=== PATIENT | male | born 1940 | race Caucasian/White ===

== ENCOUNTER 2020-04-05 13:31 | Inpatient (IN) | payer MEDICARE, MEDICAID ==
[~2020-04-05] VITALS: Ht 167.6 cm; Wt 48.5 kg
[2020-04-05 14:10] LABS: BASOPHILS % 0.3 % (0.0-2.0); EOSINOPHILS % 0.2 % (0.0-5.0); HEMATOCRIT. 26.8 % (42.0-52.0); LYMPHOCYTES % 22.5 % (20.0-50.0); MEAN CORPUSCULAR HEMOGLOBIN 31.4 pg (28.0-32.0); MEAN PLATELET VOLUME 12.6 fl (7.4-10.4); MONOCYTES % 10.9 % (2.0-8.0); NEUTROPHILS % 66.1 % (40.0-76.0); PLATELET 147 x1000/uL (130-400); RED BLOOD CELL COUNT 2.85 mill/uL (4.7-6.1); RED CELL DISTRIBUTION WIDTH 16.8 % (11.6-14.6)
[2020-04-05] MEDS ORDERED: ACETAMINOPHEN 650MG SUPP PR ONE (14:15)
[2020-04-05 14:16] LABS: CHLORIDE 119 mEq/L (98-107)
[2020-04-05 14:19] LABS: INR 1.1; PROTHROMBIN TIME 11.9 sec (9.6-11.0)
[2020-04-05 14:44] LABS: CLARITY URINE TURBID (CLEAR); COLOR URINE DARK YELLOW (YELLOW); KETONES URINE TRACE (NEGATIVE); LEUKOCYTE ESTERASE URINE 3+ (NEGATIVE); NITRITE URINE NEGATIVE (NEGATIVE); OCCULT BLOOD URINE 3+ (NEGATIVE); PROTEIN URINE 3+ (NEGATIVE); SPECIFIC GRAVITY URINE 1.021 (1.005-1.030)
[2020-04-05] MEDS ORDERED: VANCOMYCIN 1 G PREMIX 200 ML IV ONE (14:45)
[2020-04-05] MEDS ORDERED: PIPERACILLIN/TAZ 3.375G PREMIX 50 ML IV ONE (14:45)
[2020-04-05] MEDS ORDERED: PHENYLEPHRINE 50 MG in DEXT 5% WATER 245 ML IV PRN (16:00)
[2020-04-05] MEDS ORDERED: DEXT 5%/0.9% NACL 1,000 ML IV SCH (16:00)
[2020-04-05] MEDS ORDERED: IPRATROPIUM BROMIDE (0.02%) 0.5MG/2.5ML NEB HHN SCH (16:00)
[2020-04-05] MEDS: LEVOFLOXACIN 250MG PREMIX 50 ML IV SCH ×2 (17:21→19:34)
[2020-04-05] MEDS ORDERED: ONDANSETRON HCL 4MG/2ML INJ IV PRN (17:45)
[2020-04-05] MEDS ORDERED: CLONIDINE 0.1MG TABLET PO PRN (17:45)
[2020-04-05] MEDS ORDERED: DIPHENHYDRAMINE 50MG/ML VIAL IV PRN (17:45)
[2020-04-05 18:07] LABS: PHOSPHORUS 3.7 mg/dL (2.5-4.9)
[2020-04-05] MEDS: DEXTROSE 5% WATER 1,000 ML IV SCH (19:30)
[2020-04-05] MEDS ORDERED: ACETYLCYSTEINE 100MG/ML 10% VIAL 4ML INH SCH (22:00)
[2020-04-05 22:05] VITALS: BP 103/51
[2020-04-06] MEDS ORDERED: DEXTROSE 50% WATER 50ML SYRINGE IV PRN (01:15)
[2020-04-06] MEDS ORDERED: CHOL200077 GT (01:58)
[2020-04-06] MEDS ORDERED: METO25TA6 GT (01:58)
[2020-04-06] MEDS ORDERED: LACT10SO7 GT (01:58)
[2020-04-06] MEDS ORDERED: TAMS-11 GT (01:58)
[2020-04-06] MEDS ORDERED: AMIN30LI2 GT (01:58)
[2020-04-06] MEDS ORDERED: DONE10TA11 GT (01:58)
[2020-04-06 04:00] VITALS: BP 107/54
[2020-04-06] MEDS: BLOOD SUGAR DIAGNOSTIC STRIP TEST SCH ×4 (07:07→20:45)
[2020-04-06 07:49] LABS: HEMOGLOBIN. 7.2 g/dL (14.0-18.0); MEAN CORPUSCULAR HEMOGLOBIN 31.6 pg (28.0-32.0); MEAN CORPUSCULAR VOLUME 95.8 fL (80.0-94.0); MEAN PLATELET VOLUME 12.4 fl (7.4-10.4); PLATELET 99 x1000/uL (130-400); RED BLOOD CELL COUNT 2.29 mill/uL (4.7-6.1); RED CELL DISTRIBUTION WIDTH 16.4 % (11.6-14.6)
[2020-04-06] MEDS: INSULIN LISPRO 100 UNITS/ML SUBCUT SCH ×4 (07:55→20:45)
[2020-04-06 07:57] LABS: CHLORIDE 125 mEq/L (98-107)
[2020-04-06 08:00] VITALS: BP 112/52
[2020-04-06] MEDS ORDERED: VANCOMYCIN 750 MG PREMIX 150 ML IV SCH ×2 (08:00)
[2020-04-06 08:05] LABS: LDL CHOLESTEROL 27 mg/dL (5-100)
[2020-04-06 08:08] LABS: HDL CHOLESTEROL 41 mg/dL (40-59)
[2020-04-06 08:11] LABS: CREATINE KINASE MB FRACTION < 1.0 ng/mL (0.5-3.6)
[2020-04-06 09:05] LABS: CREATINE KINASE 1312 IU/L (39-308)
[2020-04-06 12:00] VITALS: BP 107/51
[2020-04-06] MEDS: DEXTROSE 5% WATER 1,000 ML IV SCH ×2 (13:27→21:16)
[2020-04-06 14:18] LABS: PLATELET ESTIMATE DECREASED
[2020-04-06 14:32] LABS: TOTAL IRON BINDING CAPACITY 294 ug/dL (250-450)
[2020-04-06 16:00] VITALS: BP 93/43
[2020-04-06] MEDS: LEVOFLOXACIN 250MG PREMIX 50 ML IV SCH (18:11)
[2020-04-06 20:00] VITALS: BP 95/48
[2020-04-07 00:05] VITALS: BP 111/50
[2020-04-07 04:00] VITALS: BP 119/47
[2020-04-07] MEDS: BLOOD SUGAR DIAGNOSTIC STRIP TEST SCH ×4 (05:30→21:46)
[2020-04-07] MEDS: INSULIN LISPRO 100 UNITS/ML SUBCUT SCH ×4 (07:20→21:00)
[2020-04-07 08:00] VITALS: BP 114/50
[2020-04-07] MEDS: VANCOMYCIN 500 MG PREMIX 100 ML IV SCH (08:04)
[2020-04-07 12:00] VITALS: BP 102/61
[2020-04-07] MEDS: FERROUS SULFATE 325MG TABLET PO SCH ×2 (12:14→17:27)
[2020-04-07] MEDS ORDERED: IPRATROPIUM/ALBUTEROL 0.5-3(2.5)MG/3ML NEB HHN PRN (13:15)
[2020-04-07 16:00] VITALS: BP 113/54
[2020-04-07] MEDS: DEXTROSE 5% WATER 1,000 ML IV SCH (17:27)
[2020-04-07] MEDS: LEVOFLOXACIN 250MG PREMIX 50 ML IV SCH (18:09)
[2020-04-07 20:00] VITALS: BP 100/50
[2020-04-07] MEDS: IPRATROPIUM/ALBUTEROL 0.5-3(2.5)MG/3ML NEB HHN SCH (21:37)
[2020-04-07] MEDS: ACETYLCYSTEINE 100MG/ML 10% VIAL 4ML INH SCH (21:37)
[2020-04-08] VITALS (10 sets, daily range): BP systolic 93–117; BP diastolic 47–57
[2020-04-08] MEDS: ACETAMINOPHEN 325MG TABLET PO PRN (01:12)
[2020-04-08] MEDS: VANCOMYCIN 500 MG PREMIX 100 ML IV SCH ×2 (03:22→12:45)
[2020-04-08] MEDS: INSULIN LISPRO 100 UNITS/ML SUBCUT SCH ×4 (07:15→21:00)
[2020-04-08] MEDS: BLOOD SUGAR DIAGNOSTIC STRIP TEST SCH ×4 (07:25→21:42)
[2020-04-08] MEDS: FERROUS SULFATE 325MG TABLET PO SCH ×3 (07:25→18:55)
[2020-04-08 07:28] LABS: MEAN CORPUSCULAR HEMOGLOBIN 31.7 pg (28.0-32.0); MEAN CORPUSCULAR VOLUME 94.8 fL (80.0-94.0); MEAN PLATELET VOLUME 11.4 fl (7.4-10.4); PLATELET 64 x1000/uL (130-400); RED BLOOD CELL COUNT 1.92 mill/uL (4.7-6.1); RED CELL DISTRIBUTION WIDTH 16.5 % (11.6-14.6)
[2020-04-08 07:38] LABS: HEMATOCRIT. 18.2 % (42.0-52.0); HEMOGLOBIN. 6.1 g/dL (14.0-18.0)
[2020-04-08 07:55] LABS: CHLORIDE 117 mEq/L (98-107)
[2020-04-08] MEDS: ACETYLCYSTEINE 100MG/ML 10% VIAL 4ML INH SCH ×2 (08:49→20:50)
[2020-04-08] MEDS: IPRATROPIUM/ALBUTEROL 0.5-3(2.5)MG/3ML NEB HHN SCH ×2 (08:50→20:51)
[2020-04-08] MEDS: DEXTROSE 5% WATER 1,000 ML IV SCH ×2 (09:52→18:56)
[2020-04-08 14:34] LABS: ATYPICAL LYMPHOCYTES 1; PLATELET ESTIMATE DECREASED
[2020-04-08] MEDS: LEVOFLOXACIN 250MG PREMIX 50 ML IV SCH (18:55)
[2020-04-08 21:27] LABS: HEMOGLOBIN 7.3 g/dL (14.0-18.0)
[2020-04-08 21:43] LABS: HEMATOCRIT 20.8 % (42.0-52.0)
[2020-04-09] VITALS (13 sets, daily range): BP systolic 83–123; BP diastolic 23–58
[2020-04-09] MEDS: VANCOMYCIN 500 MG PREMIX 100 ML IV SCH ×2 (01:34→17:40)
[2020-04-09] MEDS: BLOOD SUGAR DIAGNOSTIC STRIP TEST SCH ×4 (06:08→21:00)
[2020-04-09 06:14] LABS: CHLORIDE 114 mEq/L (98-107)
[2020-04-09] MEDS: INSULIN LISPRO 100 UNITS/ML SUBCUT SCH ×4 (06:35→21:00)
[2020-04-09 06:43] LABS: MEAN CORPUSCULAR HEMOGLOBIN 32.3 pg (28.0-32.0); MEAN CORPUSCULAR VOLUME 94.1 fL (80.0-94.0); MEAN PLATELET VOLUME 11.8 fl (7.4-10.4); PLATELET 60 x1000/uL (130-400); RED BLOOD CELL COUNT 2.12 mill/uL (4.7-6.1); RED CELL DISTRIBUTION WIDTH 15.1 % (11.6-14.6)
[2020-04-09 06:52] LABS: HEMATOCRIT. 19.9 % (42.0-52.0); HEMOGLOBIN. 6.8 g/dL (14.0-18.0)
[2020-04-09] MEDS: FERROUS SULFATE 300MG/5ML UDC PO SCH ×2 (07:00→13:08)
[2020-04-09] MEDS: DEXTROSE 5% WATER 1,000 ML IV SCH (08:58)
[2020-04-09] MEDS: ACETYLCYSTEINE 100MG/ML 10% VIAL 4ML INH SCH (09:23)
[2020-04-09] MEDS: IPRATROPIUM/ALBUTEROL 0.5-3(2.5)MG/3ML NEB HHN SCH ×2 (09:24→17:36)
[2020-04-09] MEDS ORDERED: LACTULOSE 20G/30ML UDC PO NR (12:30)
[2020-04-09 15:43] LABS: HEMATOCRIT. 21.4 % (42.0-52.0); HEMOGLOBIN. 7.5 g/dL (14.0-18.0); MEAN CORPUSCULAR HEMOGLOBIN 32.8 pg (28.0-32.0); MEAN CORPUSCULAR VOLUME 93.1 fL (80.0-94.0); MEAN PLATELET VOLUME 12.4 fl (7.4-10.4); PLATELET 64 x1000/uL (130-400); RED CELL DISTRIBUTION WIDTH 15.8 % (11.6-14.6)
[2020-04-09] MEDS: MIDODRINE HCL 5MG TABLET PO SCH (16:44)
[2020-04-09] MEDS: HYDROCODONE/ACETAMINOPHEN 5/325MG TABLET PO PRN (16:45)
[2020-04-09 17:52] LABS: PLATELET ESTIMATE MARKEDLY DECREASED
[2020-04-09 20:48] LABS: PLATELET ESTIMATE MARKEDLY DECREASED
[2020-04-09] MEDS: LEVOFLOXACIN 250MG PREMIX 50 ML IV SCH (20:58)
[2020-04-10] VITALS: BP 109/43
[2020-04-10] MEDS: IPRATROPIUM/ALBUTEROL 0.5-3(2.5)MG/3ML NEB HHN SCH ×3 (01:23→15:24)
[2020-04-10] MEDS: ACETYLCYSTEINE 100MG/ML 10% VIAL 4ML INH SCH ×3 (01:24→15:24)
[2020-04-10] MEDS: VANCOMYCIN 500 MG PREMIX 100 ML IV SCH ×2 (02:11→13:15)
[2020-04-10 04:00] VITALS: BP 122/54
[2020-04-10] MEDS: INSULIN LISPRO 100 UNITS/ML SUBCUT SCH ×4 (06:24→21:00)
[2020-04-10] MEDS: BLOOD SUGAR DIAGNOSTIC STRIP TEST SCH ×4 (06:24→21:00)
[2020-04-10 08:00] VITALS: BP 125/53
[2020-04-10] MEDS: MIDODRINE HCL 5MG TABLET PO SCH ×2 (08:20→17:00)
[2020-04-10] MEDS: OMEPRAZOLE 20MG CAPSULE EXTENDED RELEASE PO SCH (08:20)
[2020-04-10] MEDS: HYDROCODONE/ACETAMINOPHEN 5/325MG TABLET PO PRN (08:21)
[2020-04-10 08:42] LABS: CHLORIDE 104 mEq/L (98-107)
[2020-04-10 08:44] LABS: HEMATOCRIT. 25.9 % (42.0-52.0); HEMOGLOBIN. 9.1 g/dL (14.0-18.0); MEAN CORPUSCULAR HEMOGLOBIN 31.6 pg (28.0-32.0); MEAN CORPUSCULAR VOLUME 90.1 fL (80.0-94.0); MEAN PLATELET VOLUME 11.3 fl (7.4-10.4); PLATELET 60 x1000/uL (130-400); RED BLOOD CELL COUNT 2.87 mill/uL (4.7-6.1); RED CELL DISTRIBUTION WIDTH 14.6 % (11.6-14.6)
[2020-04-10 13:37] LABS: PLATELET ESTIMATE DECREASED
[2020-04-10 16:00] VITALS: BP 125/76
[2020-04-10] MEDS: DEXTROSE 5% WATER 1,000 ML IV SCH ×2 (18:12→18:13)
[2020-04-10 20:00] VITALS: BP 119/69
[2020-04-11] VITALS: BP 128/71
[2020-04-11] MEDS: IPRATROPIUM/ALBUTEROL 0.5-3(2.5)MG/3ML NEB HHN SCH ×3 (00:55→16:47)
[2020-04-11] MEDS: ACETYLCYSTEINE 100MG/ML 10% VIAL 4ML INH SCH ×3 (00:55→16:46)
[2020-04-11] MEDS: HYDROCODONE/ACETAMINOPHEN 5/325MG TABLET PO PRN (01:44)
[2020-04-11 04:00] VITALS: BP 107/42
[2020-04-11] MEDS: OMEPRAZOLE 20MG CAPSULE EXTENDED RELEASE PO SCH (06:34)
[2020-04-11] MEDS: BLOOD SUGAR DIAGNOSTIC STRIP TEST SCH ×4 (06:45→20:39)
[2020-04-11 06:46] LABS: HEMATOCRIT. 25.9 % (42.0-52.0); HEMOGLOBIN. 9.2 g/dL (14.0-18.0); MEAN CORPUSCULAR HEMOGLOBIN 31.8 pg (28.0-32.0); MEAN PLATELET VOLUME 11.7 fl (7.4-10.4); PLATELET 72 x1000/uL (130-400); RED BLOOD CELL COUNT 2.88 mill/uL (4.7-6.1)
[2020-04-11] MEDS: INSULIN LISPRO 100 UNITS/ML SUBCUT SCH ×4 (06:47→20:39)
[2020-04-11 07:15] LABS: CHLORIDE 99 mEq/L (98-107)
[2020-04-11 07:17] LABS: HEPATITIS B SURFACE ANTIGEN NEGATIVE
[2020-04-11 07:47] LABS: HEPATITIS A AB IGM NEGATIVE (NEGATIVE)
[2020-04-11 08:00] VITALS: BP 95/52
[2020-04-11] MEDS: MIDODRINE HCL 5MG TABLET PO SCH ×2 (10:39→17:42)
[2020-04-11 12:00] VITALS: BP 103/48
[2020-04-11] MEDS: DEXTROSE 5% WATER 1,000 ML IV SCH ×2 (12:46→14:29)
[2020-04-11 14:17] LABS: PLATELET ESTIMATE DECREASED
[2020-04-11 16:00] VITALS: BP 100/50
[2020-04-11 20:00] VITALS: BP 106/54
[2020-04-12] VITALS: BP 107/54
[2020-04-12] MEDS: IPRATROPIUM/ALBUTEROL 0.5-3(2.5)MG/3ML NEB HHN SCH ×3 (01:04→16:46)
[2020-04-12] MEDS: ACETYLCYSTEINE 100MG/ML 10% VIAL 4ML INH SCH ×3 (01:04→09:52)
[2020-04-12 04:00] VITALS: BP 111/46
[2020-04-12] MEDS: BLOOD SUGAR DIAGNOSTIC STRIP TEST SCH ×4 (06:31→20:28)
[2020-04-12] MEDS: INSULIN LISPRO 100 UNITS/ML SUBCUT SCH ×4 (06:31→20:28)
[2020-04-12] MEDS: OMEPRAZOLE 20MG CAPSULE EXTENDED RELEASE PO SCH (06:37)
[2020-04-12 07:21] LABS: HEMATOCRIT. 25.7 % (42.0-52.0); HEMOGLOBIN. 9.1 g/dL (14.0-18.0); MEAN CORPUSCULAR HEMOGLOBIN 31.5 pg (28.0-32.0); MEAN CORPUSCULAR VOLUME 89.1 fL (80.0-94.0); MEAN PLATELET VOLUME 11.6 fl (7.4-10.4); PLATELET 78 x1000/uL (130-400); RED BLOOD CELL COUNT 2.89 mill/uL (4.7-6.1); RED CELL DISTRIBUTION WIDTH 15.1 % (11.6-14.6)
[2020-04-12 07:33] LABS: CHLORIDE 94 mEq/L (98-107)
[2020-04-12 08:00] VITALS: BP 111/52
[2020-04-12] MEDS: MIDODRINE HCL 5MG TABLET PO SCH ×2 (09:32→17:54)
[2020-04-12 12:00] VITALS: BP 108/56
[2020-04-12] MEDS: SODIUM CHLORIDE 0.9% 1,000 ML IV SCH (12:03)
[2020-04-12 13:12] LABS: PLATELET ESTIMATE DECREASED
[2020-04-12 16:00] VITALS: BP 110/60
[2020-04-12 20:00] VITALS: BP 120/55
[2020-04-12] MEDS: HYDROCODONE/ACETAMINOPHEN 5/325MG TABLET PO PRN (23:27)
[2020-04-13] VITALS: BP_SYST 128; BP_DIAS 44; BP_DIAS 67
[2020-04-13] MEDS: IPRATROPIUM/ALBUTEROL 0.5-3(2.5)MG/3ML NEB HHN SCH ×3 (00:03→14:31)
[2020-04-13] MEDS: SODIUM CHLORIDE 0.9% 1,000 ML IV SCH (00:49)
[2020-04-13 04:00] VITALS: BP 95/38
[2020-04-13] MEDS: BLOOD SUGAR DIAGNOSTIC STRIP TEST SCH ×4 (05:49→20:45)
[2020-04-13] MEDS: OMEPRAZOLE 20MG CAPSULE EXTENDED RELEASE PO SCH (05:50)
[2020-04-13 06:24] LABS: BASOPHILS % 0.2 % (0.0-2.0); EOSINOPHILS % 0.2 % (0.0-5.0); HEMATOCRIT. 23.9 % (42.0-52.0); HEMOGLOBIN. 8.5 g/dL (14.0-18.0); LYMPHOCYTES % 32.7 % (20.0-50.0); MEAN CORPUSCULAR HEMOGLOBIN 32.2 pg (28.0-32.0); MEAN PLATELET VOLUME 11.8 fl (7.4-10.4); MONOCYTES % 11.1 % (2.0-8.0); NEUTROPHILS % 55.8 % (40.0-76.0); PLATELET 71 x1000/uL (130-400); RED BLOOD CELL COUNT 2.66 mill/uL (4.7-6.1)
[2020-04-13 06:58] LABS: CHLORIDE 98 mEq/L (98-107)
[2020-04-13] MEDS: INSULIN LISPRO 100 UNITS/ML SUBCUT SCH ×4 (07:15→20:45)
[2020-04-13 08:00] VITALS: BP 109/33
[2020-04-13] MEDS: MIDODRINE HCL 5MG TABLET PO SCH ×2 (09:24→17:00)
[2020-04-13 12:00] VITALS: BP 104/44
[2020-04-13] MEDS ORDERED: SODIUM CHLORIDE 3% 500 ML IV NR (13:00)
[2020-04-13 16:00] VITALS: BP 122/61
[2020-04-13 20:00] VITALS: BP 143/62
[2020-04-14] VITALS: BP 104/43
[2020-04-14] MEDS: SODIUM CHLORIDE 0.9% 1,000 ML IV SCH ×3 (00:24→19:08)
[2020-04-14] MEDS: IPRATROPIUM/ALBUTEROL 0.5-3(2.5)MG/3ML NEB HHN SCH ×3 (00:24→15:39)
[2020-04-14 04:00] VITALS: BP 125/52
[2020-04-14] MEDS: OMEPRAZOLE 20MG CAPSULE EXTENDED RELEASE PO SCH (06:30)
[2020-04-14] MEDS: BLOOD SUGAR DIAGNOSTIC STRIP TEST SCH ×4 (06:30→20:40)
[2020-04-14] MEDS: INSULIN LISPRO 100 UNITS/ML SUBCUT SCH ×4 (06:51→21:00)
[2020-04-14 08:00] VITALS: BP 106/59
[2020-04-14] MEDS: MIDODRINE HCL 5MG TABLET PO SCH ×2 (09:05→17:47)
[2020-04-14] MEDS: HYDROCODONE/ACETAMINOPHEN 5/325MG TABLET PO PRN (09:09)
[2020-04-14 10:02] LABS: HEMOGLOBIN. 8.1 g/dL (14.0-18.0); MEAN CORPUSCULAR HEMOGLOBIN 31.3 pg (28.0-32.0); MEAN CORPUSCULAR VOLUME 92.1 fL (80.0-94.0); MEAN PLATELET VOLUME 11.8 fl (7.4-10.4); PLATELET 84 x1000/uL (130-400); RED BLOOD CELL COUNT 2.61 mill/uL (4.7-6.1); RED CELL DISTRIBUTION WIDTH 15.5 % (11.6-14.6)
[2020-04-14 10:03] LABS: CHLORIDE 107 mEq/L (98-107)
[2020-04-14 12:00] VITALS: BP 127/65
[2020-04-14] MEDS: FERROUS SULFATE 325MG TABLET PO SCH ×2 (13:01→17:43)
[2020-04-14 16:00] VITALS: BP 114/66
[2020-04-14 20:00] VITALS: BP 116/50
[2020-04-14 23:48] LABS: PLATELET ESTIMATE DECREASED
[2020-04-15] VITALS (7 sets, daily range): BP systolic 99–135; BP diastolic 46–73
[2020-04-15] MEDS: IPRATROPIUM/ALBUTEROL 0.5-3(2.5)MG/3ML NEB HHN SCH ×5 (00:35→23:49)
[2020-04-15 05:17] LABS: CHLORIDE 101 mEq/L (98-107)
[2020-04-15 05:43] LABS: HEMATOCRIT. 23.3 % (42.0-52.0); HEMOGLOBIN. 8.1 g/dL (14.0-18.0); MEAN CORPUSCULAR HEMOGLOBIN 31.4 pg (28.0-32.0); MEAN CORPUSCULAR VOLUME 90.9 fL (80.0-94.0); MEAN PLATELET VOLUME 11.6 fl (7.4-10.4); PLATELET 101 x1000/uL (130-400); RED BLOOD CELL COUNT 2.57 mill/uL (4.7-6.1); RED CELL DISTRIBUTION WIDTH 15.3 % (11.6-14.6)
[2020-04-15] MEDS: OMEPRAZOLE 20MG CAPSULE EXTENDED RELEASE PO SCH (06:14)
[2020-04-15] MEDS: BLOOD SUGAR DIAGNOSTIC STRIP TEST SCH ×4 (06:14→21:36)
[2020-04-15] MEDS: FERROUS SULFATE 325MG TABLET PO SCH ×3 (06:14→17:22)
[2020-04-15] MEDS: INSULIN LISPRO 100 UNITS/ML SUBCUT SCH ×4 (06:38→21:00)
[2020-04-15] MEDS: MIDODRINE HCL 5MG TABLET PO SCH ×2 (09:20→17:22)
[2020-04-15] MEDS: SODIUM CHLORIDE 0.9% 1,000 ML IV SCH (09:21)
[2020-04-15 13:59] LABS: PLATELET ESTIMATE SLIGHTLY DECREASED
[2020-04-15] MEDS: ACETAMINOPHEN 325MG TABLET PO PRN (20:06)
[2020-04-16] VITALS (7 sets, daily range): BP systolic 115–138; BP diastolic 49–85
[2020-04-16] MEDS: SODIUM CHLORIDE 0.9% 1,000 ML IV SCH ×3 (03:28→21:36)
[2020-04-16] MEDS: ACETAMINOPHEN 325MG TABLET PO PRN ×2 (05:31→21:37)
[2020-04-16 06:36] LABS: CHLORIDE 97 mEq/L (98-107)
[2020-04-16] MEDS: BLOOD SUGAR DIAGNOSTIC STRIP TEST SCH ×4 (06:45→21:34)
[2020-04-16] MEDS: INSULIN LISPRO 100 UNITS/ML SUBCUT SCH ×4 (06:45→21:00)
[2020-04-16] MEDS: OMEPRAZOLE 20MG CAPSULE EXTENDED RELEASE PO SCH (06:45)
[2020-04-16 07:32] LABS: BASOPHILS % 0.1 % (0.0-2.0); EOSINOPHILS % 0.1 % (0.0-5.0); HEMATOCRIT. 28.6 % (42.0-52.0); HEMOGLOBIN. 9.6 g/dL (14.0-18.0); LYMPHOCYTES % 26.5 % (20.0-50.0); MEAN CORPUSCULAR HEMOGLOBIN 31.1 pg (28.0-32.0); MEAN CORPUSCULAR VOLUME 92.4 fL (80.0-94.0); MEAN PLATELET VOLUME 12.3 fl (7.4-10.4); MONOCYTES % 7.7 % (2.0-8.0); NEUTROPHILS % 65.6 % (40.0-76.0); PLATELET 119 x1000/uL (130-400)
[2020-04-16] MEDS: IPRATROPIUM/ALBUTEROL 0.5-3(2.5)MG/3ML NEB HHN SCH ×2 (07:37→15:17)
[2020-04-16] MEDS: FERROUS SULFATE 325MG TABLET PO SCH ×3 (09:14→17:32)
[2020-04-16] MEDS: MIDODRINE HCL 5MG TABLET PO SCH ×2 (09:14→17:32)
[2020-04-16] MEDS ORDERED: CEFEPIME 500 MG in DEXTROSE 5% WATER 50 ML IV SCH (11:45)
[2020-04-16] MEDS ORDERED: METRONIDAZOLE 500 MG PREMIX 250 MG in BAG 0 EACH IV SCH (14:00)
[2020-04-16] MEDS ORDERED: PIPERACILLIN/TAZOBACTAM 3.375 G/VIAL IV SCH (14:00)
[2020-04-16] MEDS: PIPERACILLIN/TAZOBACTAM 3.375 G in DEXT 5% WATER 100 ML IV SCH ×2 (14:28→17:33)
[2020-04-16] MEDS: DOXYCYCLINE 100 MG in DEXT 5% WATER 100 ML IV SCH ×2 (15:34→23:50)
[2020-04-17] VITALS: BP 124/65
[2020-04-17] MEDS: PIPERACILLIN/TAZOBACTAM 3.375 G in DEXT 5% WATER 100 ML IV SCH ×5 (00:54→23:58)
[2020-04-17] MEDS: IPRATROPIUM/ALBUTEROL 0.5-3(2.5)MG/3ML NEB HHN SCH ×3 (01:12→14:49)
[2020-04-17 04:00] VITALS: BP 131/69
[2020-04-17] MEDS: OMEPRAZOLE 20MG CAPSULE EXTENDED RELEASE PO SCH (05:51)
[2020-04-17] MEDS: BLOOD SUGAR DIAGNOSTIC STRIP TEST SCH ×4 (05:56→20:51)
[2020-04-17] MEDS: INSULIN LISPRO 100 UNITS/ML SUBCUT SCH ×4 (05:56→20:51)
[2020-04-17 08:00] VITALS: BP 109/34
[2020-04-17 08:03] LABS: HEMATOCRIT. 21.1 % (42.0-52.0); HEMOGLOBIN. 7.2 g/dL (14.0-18.0); MEAN CORPUSCULAR HEMOGLOBIN 31.2 pg (28.0-32.0); MEAN CORPUSCULAR VOLUME 91.1 fL (80.0-94.0); MEAN PLATELET VOLUME 11.3 fl (7.4-10.4); PLATELET 93 x1000/uL (130-400); RED BLOOD CELL COUNT 2.32 mill/uL (4.7-6.1)
[2020-04-17 08:09] LABS: CHLORIDE 94 mEq/L (98-107)
[2020-04-17] MEDS: DOXYCYCLINE 100 MG in DEXT 5% WATER 100 ML IV SCH ×2 (09:38→20:56)
[2020-04-17] MEDS: MIDODRINE HCL 5MG TABLET PO SCH ×2 (09:38→17:22)
[2020-04-17] MEDS: FERROUS SULFATE 325MG TABLET PO SCH ×3 (09:38→17:22)
[2020-04-17 12:00] VITALS: BP 109/34
[2020-04-17] MEDS: SODIUM CHLORIDE 0.9% 1,000 ML IV SCH ×2 (12:18→23:58)
[2020-04-17 16:00] VITALS: BP 127/70
[2020-04-17 20:00] VITALS: BP 129/51
[2020-04-17 23:01] LABS: PLATELET ESTIMATE DECREASED
[2020-04-17] MEDS: ACETAMINOPHEN 325MG TABLET PO PRN (23:58)
[2020-04-18] VITALS: BP 114/62
[2020-04-18] MEDS: IPRATROPIUM/ALBUTEROL 0.5-3(2.5)MG/3ML NEB HHN SCH ×3 (00:58→16:34)
[2020-04-18 04:00] VITALS: BP 120/49
[2020-04-18 06:29] LABS: BASOPHILS % 0.4 % (0.0-2.0); EOSINOPHILS % 0.1 % (0.0-5.0); HEMATOCRIT. 22.4 % (42.0-52.0); HEMOGLOBIN. 7.8 g/dL (14.0-18.0); LYMPHOCYTES % 32.6 % (20.0-50.0); MEAN CORPUSCULAR HEMOGLOBIN 31.8 pg (28.0-32.0); MEAN PLATELET VOLUME 11.2 fl (7.4-10.4); MONOCYTES % 12.4 % (2.0-8.0); NEUTROPHILS % 54.5 % (40.0-76.0); PLATELET 98 x1000/uL (130-400); RED BLOOD CELL COUNT 2.47 mill/uL (4.7-6.1); RED CELL DISTRIBUTION WIDTH 15.2 % (11.6-14.6)
[2020-04-18 06:42] LABS: CHLORIDE 97 mEq/L (98-107)
[2020-04-18] MEDS: PIPERACILLIN/TAZOBACTAM 3.375 G in DEXT 5% WATER 100 ML IV SCH ×3 (06:44→17:14)
[2020-04-18] MEDS: BLOOD SUGAR DIAGNOSTIC STRIP TEST SCH ×4 (06:50→21:49)
[2020-04-18] MEDS: INSULIN LISPRO 100 UNITS/ML SUBCUT SCH ×4 (06:50→21:00)
[2020-04-18] MEDS: OMEPRAZOLE 20MG CAPSULE EXTENDED RELEASE PO SCH (06:58)
[2020-04-18 08:00] VITALS: BP 115/61
[2020-04-18] MEDS: MIDODRINE HCL 5MG TABLET PO SCH ×2 (09:11→17:14)
[2020-04-18] MEDS: FERROUS SULFATE 325MG TABLET PO SCH ×3 (09:11→17:14)
[2020-04-18] MEDS: DOXYCYCLINE 100 MG in DEXT 5% WATER 100 ML IV SCH ×2 (09:12→22:51)
[2020-04-18 12:22] VITALS: BP 135/72
[2020-04-18] MEDS: SODIUM CHLORIDE 0.9% 1,000 ML IV SCH (13:49)
[2020-04-18 16:00] VITALS: BP 135/80
[2020-04-18 20:00] VITALS: BP 108/69
[2020-04-19] VITALS: BP 119/52
[2020-04-19] MEDS: IPRATROPIUM/ALBUTEROL 0.5-3(2.5)MG/3ML NEB HHN SCH ×3 (00:40→21:22)
[2020-04-19] MEDS: PIPERACILLIN/TAZOBACTAM 3.375 G in DEXT 5% WATER 100 ML IV SCH ×4 (00:50→17:22)
[2020-04-19 04:00] VITALS: BP 105/46
[2020-04-19] MEDS: SODIUM CHLORIDE 0.9% 1,000 ML IV SCH (04:49)
[2020-04-19] MEDS: INSULIN LISPRO 100 UNITS/ML SUBCUT SCH ×2 (06:24→11:39)
[2020-04-19] MEDS: BLOOD SUGAR DIAGNOSTIC STRIP TEST SCH ×2 (06:24→11:39)
[2020-04-19] MEDS ORDERED: LANSOPRAZOLE 30MG DR CAPSULE NG SCH (06:45)
[2020-04-19 06:50] LABS: CHLORIDE 96 mEq/L (98-107)
[2020-04-19] MEDS ORDERED: LANSOPRAZOLE 30MG DR CAPSULE GT SCH (06:54)
[2020-04-19] MEDS: FERROUS SULFATE 300MG/5ML UDC PO SCH ×2 (07:35→11:46)
[2020-04-19 08:00] VITALS: BP 110/58
[2020-04-19] MEDS: DOXYCYCLINE 100 MG in DEXT 5% WATER 100 ML IV SCH ×2 (08:41→21:36)
[2020-04-19] MEDS: MIDODRINE HCL 5MG TABLET PO SCH ×2 (08:47→17:22)
[2020-04-19 09:25] LABS: BASOPHILS % 0.5 % (0.0-2.0); EOSINOPHILS % 0.4 % (0.0-5.0); HEMATOCRIT. 22.7 % (42.0-52.0); HEMOGLOBIN. 7.8 g/dL (14.0-18.0); LYMPHOCYTES % 31.7 % (20.0-50.0); MEAN CORPUSCULAR HEMOGLOBIN 31.3 pg (28.0-32.0); MEAN CORPUSCULAR VOLUME 90.4 fL (80.0-94.0); MEAN PLATELET VOLUME 10.3 fl (7.4-10.4); NEUTROPHILS % 56.4 % (40.0-76.0); PLATELET 110 x1000/uL (130-400); RED BLOOD CELL COUNT 2.51 mill/uL (4.7-6.1); RED CELL DISTRIBUTION WIDTH 15.4 % (11.6-14.6)
[2020-04-19 12:00] VITALS: BP 140/56
[2020-04-19] MEDS ORDERED: IRON SUCROSE 200 MG XX SCH (14:15)
[2020-04-19 16:00] VITALS: BP 130/58
[2020-04-19] MEDS ORDERED: IRON SUCROSE COMPLEX 200 MG in SODIUM CHLORIDE 0.9% 100 ML IV SCH (16:00)
[2020-04-19 17:33] LABS: BG BASE EXCESS -2.6 mmol/L (-2.0-2.0); BG CARBOXYHEMOGLOBIN 0.3 % (0.5-1.5); BG DEOXYHEMOGLOBIN 27.2 % (0.0-5.0); BG FRACTION INSPIRED OXYGEN 21; BG HCO3 ACT 20.6 mmol/L (22.0-26.0); BG METHEMOGLOBIN 0.6 % (0.0-1.5); BG OXYGEN SATURATION 72.6 % (92.0-98.5); BG OXYHEMOGLOBIN 71.9 % (94.0-97.0); BG PCO2 29.1 mmHg (35.0-45.0); BG PH 7.468 (7.350-7.450); BG PO2 36.3 mmHg (75.0-100.0); BG SAMPLE SITE RIGHT RADIAL; BG TOTAL HEMOGLOBIN 8.1 g/dL (12.0-18.0); BG VENT MODE ROOM AIR
[2020-04-19 18:13] LABS: BG CARBOXYHEMOGLOBIN 0.3 % (0.5-1.5); BG DEOXYHEMOGLOBIN 1.9 % (0.0-5.0); BG FRACTION INSPIRED OXYGEN 21; BG HCO3 ACT 17.7 mmol/L (22.0-26.0); BG METHEMOGLOBIN 0.3 % (0.0-1.5); BG OXYGEN SATURATION 98.1 % (92.0-98.5); BG OXYHEMOGLOBIN 97.5 % (94.0-97.0); BG PCO2 21.2 mmHg (35.0-45.0); BG PO2 115.8 mmHg (75.0-100.0); BG TOTAL HEMOGLOBIN 7.7 g/dL (12.0-18.0); BG VENT MODE ROOM AIR
[2020-04-19 20:00] VITALS: BP 117/66
[2020-04-19 21:12] LABS: SODIUM URINE RANDOM 104 mEq/L
[2020-04-20] VITALS: BP 128/53
[2020-04-20] MEDS: PIPERACILLIN/TAZOBACTAM 3.375 G in DEXT 5% WATER 100 ML IV SCH ×3 (01:04→11:29)
[2020-04-20 04:00] VITALS: BP 143/68
[2020-04-20] MEDS: IPRATROPIUM/ALBUTEROL 0.5-3(2.5)MG/3ML NEB HHN SCH ×4 (04:28→23:45)
[2020-04-20 07:13] LABS: CHLORIDE 95 mEq/L (98-107)
[2020-04-20 07:18] LABS: BASOPHILS % 0.2 % (0.0-2.0); EOSINOPHILS % 0.3 % (0.0-5.0); HEMOGLOBIN. 7.2 g/dL (14.0-18.0); LYMPHOCYTES % 28.3 % (20.0-50.0); MEAN CORPUSCULAR HEMOGLOBIN 31.4 pg (28.0-32.0); MEAN CORPUSCULAR VOLUME 89.8 fL (80.0-94.0); MONOCYTES % 10.5 % (2.0-8.0); NEUTROPHILS % 60.7 % (40.0-76.0); PLATELET 124 x1000/uL (130-400); RED BLOOD CELL COUNT 2.28 mill/uL (4.7-6.1)
[2020-04-20 07:20] LABS: PHOSPHORUS 2.8 mg/dL (2.5-4.9)
[2020-04-20 08:00] VITALS: BP 106/67
[2020-04-20 08:24] LABS: HEMATOCRIT. 20.5 % (42.0-52.0)
[2020-04-20] MEDS: DOXYCYCLINE 100 MG in DEXT 5% WATER 100 ML IV SCH ×2 (09:20→20:22)
[2020-04-20] MEDS: CYANOCOBALAMIN 1000MCG/ML VIAL IM SCH (09:21)
[2020-04-20] MEDS: MIDODRINE HCL 5MG TABLET PO SCH ×2 (09:21→17:02)
[2020-04-20 12:00] VITALS: BP 98/50
[2020-04-20] MEDS: SODIUM CHLORIDE 1000MG TABLET PO SCH ×2 (13:37→20:22)
[2020-04-20] MEDS: DEMECLOCYCLINE HCL 300MG TABLET PO SCH ×2 (13:37→20:23)
[2020-04-20 16:00] VITALS: BP 117/54
[2020-04-20] MEDS: ACETAMINOPHEN 325MG TABLET PO PRN (17:02)
[2020-04-20] MEDS: IRON SUCROSE COMPLEX 100 MG/5 ML ML IV SCH (17:03)
[2020-04-20 20:00] VITALS: BP 99/66
[2020-04-21] VITALS: BP 100/44
[2020-04-21] MEDS: LORAZEPAM 0.5MG TABLET PO PRN (00:48)
[2020-04-21 04:00] VITALS: BP 99/48
[2020-04-21 08:00] VITALS: BP 130/55
[2020-04-21] MEDS: SODIUM CHLORIDE 1000MG TABLET PO SCH ×2 (08:21→21:09)
[2020-04-21] MEDS: DEMECLOCYCLINE HCL 300MG TABLET PO SCH ×2 (08:21→21:09)
[2020-04-21] MEDS: CYANOCOBALAMIN 1000MCG/ML VIAL IM SCH (08:21)
[2020-04-21] MEDS: MIDODRINE HCL 5MG TABLET PO SCH ×2 (08:21→16:16)
[2020-04-21] MEDS: DOXYCYCLINE 100 MG in DEXT 5% WATER 100 ML IV SCH ×2 (08:21→21:08)
[2020-04-21 09:06] LABS: IMMUNOGLOBULIN A 452 mg/dL (61-437); IMMUNOGLOBULIN G 1959 mg/dL (603-1613); IMMUNOGLOBULIN M 109 mg/dL (15-143)
[2020-04-21] MEDS: ACETAMINOPHEN 325MG TABLET PO PRN (11:33)
[2020-04-21 11:37] VITALS: BP 124/59
[2020-04-21] MEDS ORDERED: PIPERACILLIN/TAZOBACTAM 3.375 G in DEXT 5% WATER 100 ML IV SCH (13:45)
[2020-04-21] MEDS: IPRATROPIUM BROMIDE (0.02%) 0.5MG/2.5ML NEB HHN SCH (14:04)
[2020-04-21] MEDS: CEFEPIME 1,000 MG in DEXTROSE 5% WATER 50 ML IV SCH ×2 (14:52→21:08)
[2020-04-21] MEDS: METRONIDAZOLE 500 MG PREMIX 100 ML IV SCH ×2 (15:27→21:09)
[2020-04-21 16:00] VITALS: BP 121/59
[2020-04-21] MEDS: IRON SUCROSE COMPLEX 100 MG/5 ML ML IV SCH (16:16)
[2020-04-21 16:19] LABS: BASOPHILS % 0.7 % (0.0-2.0); CHLORIDE 101 mEq/L (98-107); EOSINOPHILS % 0.1 % (0.0-5.0); HEMATOCRIT. 21.6 % (42.0-52.0); HEMOGLOBIN. 7.4 g/dL (14.0-18.0); LYMPHOCYTES % 22.3 % (20.0-50.0); MEAN CORPUSCULAR VOLUME 90.5 fL (80.0-94.0); MEAN PLATELET VOLUME 11.5 fl (7.4-10.4); MONOCYTES % 8.2 % (2.0-8.0); NEUTROPHILS % 68.7 % (40.0-76.0); PLATELET 125 x1000/uL (130-400); RED BLOOD CELL COUNT 2.38 mill/uL (4.7-6.1); RED CELL DISTRIBUTION WIDTH 15.1 % (11.6-14.6)
[2020-04-21 16:26] LABS: PHOSPHORUS 2.9 mg/dL (2.5-4.9)
[2020-04-21 20:00] VITALS: BP 124/54
[2020-04-22] VITALS: BP 112/43
[2020-04-22] MEDS: IPRATROPIUM BROMIDE (0.02%) 0.5MG/2.5ML NEB HHN SCH ×4 (00:29→20:20)
[2020-04-22 04:00] VITALS: BP 125/47
[2020-04-22] MEDS: ACETAMINOPHEN 325MG TABLET PO PRN ×2 (04:37→21:43)
[2020-04-22] MEDS: CEFEPIME 1,000 MG in DEXTROSE 5% WATER 50 ML IV SCH ×3 (05:06→22:18)
[2020-04-22] MEDS: METRONIDAZOLE 500 MG PREMIX 100 ML IV SCH ×3 (05:19→21:15)
[2020-04-22] MEDS: LORAZEPAM 0.5MG TABLET PO PRN ×2 (06:19→22:06)
[2020-04-22 07:25] LABS: BASOPHILS % 0.3 % (0.0-2.0); CHLORIDE 104 mEq/L (98-107); EOSINOPHILS % 0.1 % (0.0-5.0); LYMPHOCYTES % 20.6 % (20.0-50.0); MEAN CORPUSCULAR HEMOGLOBIN 31.8 pg (28.0-32.0); MEAN CORPUSCULAR VOLUME 90.4 fL (80.0-94.0); MEAN PLATELET VOLUME 11.9 fl (7.4-10.4); MONOCYTES % 8.3 % (2.0-8.0); NEUTROPHILS % 70.7 % (40.0-76.0); PLATELET 130 x1000/uL (130-400); RED BLOOD CELL COUNT 2.17 mill/uL (4.7-6.1); RED CELL DISTRIBUTION WIDTH 15.2 % (11.6-14.6)
[2020-04-22 07:31] LABS: PHOSPHORUS 2.5 mg/dL (2.5-4.9)
[2020-04-22 07:39] LABS: HEMATOCRIT. 19.6 % (42.0-52.0); HEMOGLOBIN. 6.9 g/dL (14.0-18.0)
[2020-04-22 08:00] VITALS: BP 144/66
[2020-04-22] MEDS: DEMECLOCYCLINE HCL 300MG TABLET PO SCH ×2 (09:09→21:15)
[2020-04-22] MEDS: CYANOCOBALAMIN 1000MCG/ML VIAL IM SCH (09:09)
[2020-04-22] MEDS: MIDODRINE HCL 5MG TABLET PO SCH ×2 (09:09→17:06)
[2020-04-22] MEDS: SODIUM CHLORIDE 1000MG TABLET PO SCH ×2 (09:09→21:15)
[2020-04-22] MEDS: DOXYCYCLINE 100 MG in DEXT 5% WATER 100 ML IV SCH ×2 (09:10→20:14)
[2020-04-22] MEDS ORDERED: HYDROCODONE/ACETAMINOPHEN 5/325MG TABLET PO PRN (11:30)
[2020-04-22 12:00] VITALS: BP 119/50
[2020-04-22 16:00] VITALS: BP 127/52
[2020-04-22 16:34] LABS: HEMATOCRIT 23.3 % (42.0-52.0)
[2020-04-22 20:00] VITALS: BP 116/32
[2020-04-23] VITALS (10 sets, daily range): BP systolic 96–146; BP diastolic 54–78
[2020-04-23] MEDS: METRONIDAZOLE 500 MG PREMIX 100 ML IV SCH ×2 (05:07→22:48)
[2020-04-23] MEDS: CEFEPIME 1,000 MG in DEXTROSE 5% WATER 50 ML IV SCH ×3 (06:11→22:48)
[2020-04-23 06:25] LABS: CHLORIDE 101 mEq/L (98-107)
[2020-04-23 06:39] LABS: PHOSPHORUS 2.5 mg/dL (2.5-4.9)
[2020-04-23 07:00] LABS: BASOPHILS % 0.4 % (0.0-2.0); EOSINOPHILS % 0.1 % (0.0-5.0); LYMPHOCYTES % 17.2 % (20.0-50.0); MEAN CORPUSCULAR HEMOGLOBIN 31.4 pg (28.0-32.0); MEAN CORPUSCULAR VOLUME 91.8 fL (80.0-94.0); MEAN PLATELET VOLUME 11.7 fl (7.4-10.4); MONOCYTES % 9.3 % (2.0-8.0); PLATELET 112 x1000/uL (130-400); RED BLOOD CELL COUNT 2.16 mill/uL (4.7-6.1); RED CELL DISTRIBUTION WIDTH 15.2 % (11.6-14.6)
[2020-04-23 07:49] LABS: HEMATOCRIT. 19.8 % (42.0-52.0); HEMOGLOBIN. 6.8 g/dL (14.0-18.0)
[2020-04-23] MEDS: MIDODRINE HCL 5MG TABLET PO SCH ×2 (09:00→17:00)
[2020-04-23] MEDS: DEMECLOCYCLINE HCL 300MG TABLET PO SCH ×2 (09:02→20:31)
[2020-04-23] MEDS: SODIUM CHLORIDE 1000MG TABLET PO SCH ×2 (09:02→20:31)
[2020-04-23] MEDS: CYANOCOBALAMIN 1000MCG TABLET PO SCH (09:02)
[2020-04-23] MEDS: ACETAMINOPHEN 325MG TABLET PO PRN (09:04)
[2020-04-23] MEDS: DOXYCYCLINE 100 MG in DEXT 5% WATER 100 ML IV SCH ×2 (09:05→20:31)
[2020-04-23] MEDS: LORAZEPAM 0.5MG TABLET PO PRN ×2 (11:18→16:20)
[2020-04-23] MEDS: IPRATROPIUM BROMIDE (0.02%) 0.5MG/2.5ML NEB HHN SCH (16:06)
[2020-04-23 20:39] LABS: HEMATOCRIT 23.1 % (42.0-52.0)
[2020-04-24] VITALS (12 sets, daily range): BP systolic 98–139; BP diastolic 48–92
[2020-04-24] MEDS: IPRATROPIUM BROMIDE (0.02%) 0.5MG/2.5ML NEB HHN SCH ×4 (00:05→13:51)
[2020-04-24 06:25] LABS: BASOPHILS % 0.3 % (0.0-2.0); EOSINOPHILS % 0.1 % (0.0-5.0); LYMPHOCYTES % 15.8 % (20.0-50.0); MEAN CORPUSCULAR HEMOGLOBIN 32.1 pg (28.0-32.0); MEAN CORPUSCULAR VOLUME 93.3 fL (80.0-94.0); MONOCYTES % 11.7 % (2.0-8.0); NEUTROPHILS % 72.1 % (40.0-76.0); RED BLOOD CELL COUNT 2.13 mill/uL (4.7-6.1); RED CELL DISTRIBUTION WIDTH 15.4 % (11.6-14.6)
[2020-04-24 06:26] LABS: CHLORIDE 101 mEq/L (98-107)
[2020-04-24 06:49] LABS: PHOSPHORUS 2.2 mg/dL (2.5-4.9)
[2020-04-24 06:51] LABS: HEMATOCRIT. 19.9 % (42.0-52.0); HEMOGLOBIN. 6.8 g/dL (14.0-18.0)
[2020-04-24 08:15] LABS: MEAN PLATELET VOLUME 11.2 fl (7.4-10.4); PLATELET 135 x1000/uL (130-400)
[2020-04-24] MEDS: MIDODRINE HCL 5MG TABLET PO SCH ×2 (09:07→17:57)
[2020-04-24] MEDS: CYANOCOBALAMIN 1000MCG TABLET PO SCH (09:08)
[2020-04-24] MEDS: SODIUM CHLORIDE 1000MG TABLET PO SCH ×2 (09:08→20:07)
[2020-04-24] MEDS: DEMECLOCYCLINE HCL 300MG TABLET PO SCH ×2 (10:20→20:07)
[2020-04-24] MEDS ORDERED: SODIUM PHOS,M-BASIC-D-BASIC 15 MM in DEXT 5% WATER 245 ML IV SCH (10:30)
[2020-04-24] MEDS: ZINC SULFATE 220 MG ( 50 ) CAPSULE PEG SCH (13:37)
[2020-04-24] MEDS: ASCORBIC ACID 500 MG TABLET PO SCH ×2 (13:37→17:57)
[2020-04-24] MEDS: LORAZEPAM 0.5MG TABLET PO PRN (23:21)
[2020-04-25] VITALS (9 sets, daily range): BP systolic 92–130; BP diastolic 44–78
[2020-04-25 06:13] LABS: CHLORIDE 101 mEq/L (98-107)
[2020-04-25 06:26] LABS: PHOSPHORUS 2.8 mg/dL (2.5-4.9)
[2020-04-25 06:27] LABS: HEMATOCRIT. 21.9 % (42.0-52.0); HEMOGLOBIN. 7.5 g/dL (14.0-18.0); MEAN CORPUSCULAR HEMOGLOBIN 31.4 pg (28.0-32.0); MEAN CORPUSCULAR VOLUME 91.2 fL (80.0-94.0); MEAN PLATELET VOLUME 11.6 fl (7.4-10.4); PLATELET 113 x1000/uL (130-400); RED CELL DISTRIBUTION WIDTH 14.6 % (11.6-14.6)
[2020-04-25] MEDS: CYANOCOBALAMIN 1000MCG TABLET PO SCH (08:15)
[2020-04-25] MEDS: SODIUM CHLORIDE 1000MG TABLET PO SCH ×2 (08:15→19:50)
[2020-04-25] MEDS: MIDODRINE HCL 5MG TABLET PO SCH ×2 (08:15→17:00)
[2020-04-25] MEDS: DEMECLOCYCLINE HCL 300MG TABLET PO SCH (08:16)
[2020-04-25] MEDS: DOCUSATE SODIUM SUGAR FREE 100MG/10ML UDC PO SCH (08:16)
[2020-04-25] MEDS: ZINC SULFATE 220 MG ( 50 ) CAPSULE PEG SCH (08:16)
[2020-04-25] MEDS: ASCORBIC ACID 500 MG TABLET PO SCH ×2 (08:16→17:24)
[2020-04-25] MEDS: IPRATROPIUM BROMIDE (0.02%) 0.5MG/2.5ML NEB HHN SCH ×2 (08:31→23:52)
[2020-04-25 09:08] LABS: PLATELET ESTIMATE SLIGHTLY DECREASED
[2020-04-25] MEDS ORDERED: IOHEXOL-300 100 ML BOTTLE ONE (14:42)
[2020-04-25] MEDS: LORAZEPAM 0.5MG TABLET PO PRN (23:21)
[2020-04-26] VITALS (7 sets, daily range): BP systolic 100–119; BP diastolic 51–68
[2020-04-26] MEDS: ACETAMINOPHEN 325MG TABLET PO PRN ×2 (04:54→13:59)
[2020-04-26] MEDS: IPRATROPIUM BROMIDE (0.02%) 0.5MG/2.5ML NEB HHN SCH ×2 (08:15→16:03)
[2020-04-26] MEDS: DOCUSATE SODIUM SUGAR FREE 100MG/10ML UDC PO SCH (08:19)
[2020-04-26] MEDS: CYANOCOBALAMIN 1000MCG TABLET PO SCH (08:20)
[2020-04-26] MEDS: ZINC SULFATE 220 MG ( 50 ) CAPSULE PEG SCH (08:20)
[2020-04-26] MEDS: MIDODRINE HCL 5MG TABLET PO SCH ×2 (08:20→18:38)
[2020-04-26] MEDS: ASCORBIC ACID 500 MG TABLET PO SCH ×2 (08:20→18:37)
[2020-04-26] MEDS: SODIUM CHLORIDE 1000MG TABLET PO SCH ×2 (08:23→20:03)
[2020-04-26 12:42] LABS: BASOPHILS % 0.3 % (0.0-2.0); EOSINOPHILS % 0.1 % (0.0-5.0); HEMATOCRIT. 21.6 % (42.0-52.0); HEMOGLOBIN. 7.4 g/dL (14.0-18.0); LYMPHOCYTES % 8.7 % (20.0-50.0); MEAN CORPUSCULAR HEMOGLOBIN 31.6 pg (28.0-32.0); MEAN CORPUSCULAR VOLUME 92.5 fL (80.0-94.0); MEAN PLATELET VOLUME 10.6 fl (7.4-10.4); MONOCYTES % 10.3 % (2.0-8.0); NEUTROPHILS % 80.6 % (40.0-76.0); PLATELET 108 x1000/uL (130-400); RED BLOOD CELL COUNT 2.34 mill/uL (4.7-6.1); RED CELL DISTRIBUTION WIDTH 15.5 % (11.6-14.6)
[2020-04-26 12:50] LABS: CHLORIDE 103 mEq/L (98-107)
== END 2020-04-26 23:17 | DRG 871 ==
LOC: ER 13:31 → 7WST 16:21 → EDBEDREQSVC 16:29 → EDBEDREQ 16:29 → ENRESERV 20:54 → 5WST 04-07 13:23 → 5EST 04-23 22:31
PROVIDERS: ADMIT Internal Medicine; ATTEND Internal Medicine
PROC: 30233N1 Transfusion of Nonautologous Red Blood Cells into Peripheral Vein, Percutaneous Approach (ICD-10-PCS; 2020-04-08)
PROC: 02HV33Z Insertion of Infusion Device into Superior Vena Cava, Percutaneous Approach (ICD-10-PCS; principal; 2020-04-25)
PROC: B548ZZA Ultrasonography of Superior Vena Cava, Guidance (ICD-10-PCS; 2020-04-25)
DX: A41.9 Sepsis, unspecified organism (principal); E43 Unspecified severe protein-calorie malnutrition; J69.0 Pneumonitis due to inhalation of food and vomit; K72.00 Acute and subacute hepatic failure without coma; J96.01 Acute respiratory failure with hypoxia; R65.21 Severe sepsis with septic shock; E87.0 Hyperosmolality and hypernatremia; N30.00 Acute cystitis without hematuria; E87.1 Hypo-osmolality and hyponatremia; N17.9 Acute kidney failure, unspecified; D61.818 Other pancytopenia; G45.9 Transient cerebral ischemic attack, unspecified; Z68.1 Body mass index [BMI] 19.9 or less, adult; D50.9 Iron deficiency anemia, unspecified; E86.0 Dehydration; F03.90 Unspecified dementia, unspecified severity, without behavioral disturbance, psychotic disturbance, mood disturbance, and anxiety; I10 Essential (primary) hypertension; J44.9 Chronic obstructive pulmonary disease, unspecified; L89.90 Pressure ulcer of unspecified site, unspecified stage; R13.10 Dysphagia, unspecified; Y95 Nosocomial condition; Z20.828 Contact with and (suspected) exposure to other viral communicable diseases; B96.89 Other specified bacterial agents as the cause of diseases classified elsewhere; R47.02 Dysphasia; L89.626 Pressure-induced deep tissue damage of left heel; L89.616 Pressure-induced deep tissue damage of right heel; K80.20 Calculus of gallbladder without cholecystitis without obstruction; B96.5 Pseudomonas (aeruginosa) (mallei) (pseudomallei) as the cause of diseases classified elsewhere; Z51.5 Encounter for palliative care; Z93.1 Gastrostomy status
CPT/HCPCS: 36415; 36600; 71045; 71260; 74177; 76700; 76937; 80048; 80053; 80061; 80076; 80202; 81003; 82040; 82248; 82270; 82375; 82533; 82550; 82553; 82728; 82784; 82805; 82962; 83036; 83540; 83550; 83605; 83735; 83935; 84100; 84134; 84145; 84300; 84443; 84484; 85014; 85018; 85025; 85379; 86334; 86705; 86709; 86803; 86850; 86900; 86920; 87077; 87186; 87340; 87635; 93005; 93923; 93970; 94640; 99291; C1725; C1769; C1892; J0692; J1200; J1815; J1956; J2405; J2543; J3370; J3420; J3490; J7030; J7050; J7060; J7070; J7608; P9016; Q9967